=== PATIENT | female | born 1945 | race Caucasian/White ===

== ENCOUNTER → 2019-02-14 | Outpatient (REF) | payer MEDICARE, BC | LOC: M LAB REF 16:20 | PROVIDERS: ATTEND Physician Assistant | DX: N76.4 Abscess of vulva (principal) ==

== ENCOUNTER → 2024-11-20 | Outpatient (REF) | payer MEDICARE | LOC: M SFHCADAM 11:09 | PROVIDERS: ATTEND Physician Assistant | DX: Z53.9 Procedure and treatment not carried out, unspecified reason (principal) ==

== ENCOUNTER → 2024-11-21 | Outpatient (REF) | payer MEDICARE ==
[2024-11-21 19:09] LABS: IRON (FE) 61.0 UG/DL (50-170)
[2024-11-21 19:10] LABS: PERCENT SATURATION 23.6 % (13.2-45.0)
[2024-11-21 19:13] LABS: FREE T4 1.2 NG/DL (0.89-1.76)
== END ==
LOC: M SFHCADAM 11:21
PROVIDERS: ATTEND Physician Assistant
DX: L29.9 Pruritus, unspecified (principal)